=== PATIENT | female | born 1975 | race Caucasian/White ===

== ENCOUNTER 2018-08-31 18:20 | Emergency (ER) | payer MEDICAID ==
--- NOTE | 2018-08-31 19:39 | EDM.PDOC ---
ED HPI GENERAL MEDICAL PROBLEM - General Chief Complaint: Trauma Stated Complaint: FELL AT HOME/HEAD INJURY Time Seen by Provider: 08/31/18 19:20 Source of Information: Reports: Patient History Limitations: Reports: No Limitations - History of Present Illness INITIAL COMMENTS - FREE TEXT/NARRATIVE: 43-year-old female who was moving furniture and she was carrying a heavy piece of furniture up stairs by herself. She was ratcheting it up 2 steps at a time and when she was at the top, part of the furniture hit the step and she lost her balance and fell backwards falling down the entire flight of stairs. This occurred approximately 5 PM. She did have a loss of consciousness and awakened on the floor at the base of the steps. She does remember certain parts falling down the steps. She remembers hitting her posterior head and also hitting her nose. She denies any neck pain but does have some stiffness in her neck. She rates pain in her nose and her head as a 6/10. It is sharp and sore. It is worse with palpation. She had a slight nosebleed which has stopped. She feels that she is breathing normally through her nose. She has no abdominal pain. There is no arm or leg pain. She has no back pain. There are no other associated signs or symptoms. There are no other modifying factors. 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 - History Comment History Comment: Patient denies chronic medical problems. 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 Review of Systems - Review of Systems Review Of Systems: See Below Constitutional: Reports: No Symptoms Eyes: Reports: No Symptoms Ears: Reports: No Symptoms Nose: Reports: Epistaxis (Resolved), Other (Pain) Mouth/Throat: Reports: No Symptoms Respiratory: Reports: No Symptoms Cardiovascular: Reports: No Symptoms Genitourinary: Reports: No Symptoms Musculoskeletal: Reports: Neck Pain (Neck stiffness) Skin: Reports: No Symptoms (No open wounds) Neurological: Reports: Headache, Other (She had a loss of consciousness) Psychiatric: Reports: No Symptoms ED EXAM, GENERAL - Physical Exam Exam: See Below Exam Limited By: No Limitations General Appearance: Alert, WD/WN, Mild Distress Eye Exam: Bilateral Eye: EOMI, Normal Inspection, PERRL Ears: Normal External Exam, Hearing Grossly Normal Ear Exam: Bilateral Ear: Auricle Normal Nose: Nasal Tenderness, Nasal Swelling Throat/Mouth: Normal Inspection, Normal Lips, Normal Voice, No Airway Compromise Head: Other (As above; so her occipital scalp) Neck: Normal Inspection, Non-Tender, Other (Stiff). No: Tender Midline Respiratory/Chest: No Respiratory Distress, Lungs Clear, Normal Breath Sounds, No Accessory Muscle Use, Chest Non-Tender Cardiovascular: Normal Peripheral Pulses, Regular Rate, Rhythm, No Edema, No Gallop, No JVD, No Murmur, No Rub Peripheral Pulses: 2+: Radial (L), Radial (R) GI/Abdominal: Normal Bowel Sounds, Soft, Non-Tender, No Organomegaly, No Distention, Pelvis Stable Back Exam: Normal Inspection, Full Range of Motion Extremities: Normal Inspection, Normal Range of Motion, Non-Tender, No Pedal Edema, Normal Capillary Refill Neurological: Alert, Oriented, CN II-XII Intact, Normal Cognition, No Motor/ Sensory Deficits Psychiatric: Normal Affect, Normal Mood Skin Exam: Warm, Dry, Intact, Normal Color, No Rash Lymphatic: No Adenopathy Course - Vital Signs Last Recorded V/S: Last Vital Signs Temp 36.8 C 08/31/18 19:29 Pulse 67 08/31/18 20:07 Resp 18 08/31/18 20:07 BP 168/95 H 08/31/18 20:07 Pulse Ox 100 08/31/18 20:07 - Orders/Labs/Meds Orders: Active Orders 24 hr Category Date Time Status Cervical Spine wo Cont [CT] Stat Exams 08/31/18 19:31 Taken Head wo Cont [CT] Stat Exams 08/31/18 19:31 Taken Labs: Laboratory Tests 08/31/18 Range/Units 19:08 Urine Color Yellow (YELLOW) Urine Appearance Clear (CLEAR) Urine pH 7.0 H (5.0-6.5) Ur Specific [place] 1.005 L (1.010-1.025) Urine Protein Negative (NEGATIVE) mg/dL Urine Glucose (UA) Normal (NORMAL) mg/dL Urine Ketones Negative (NEGATIVE) mg/dL Urine Occult Blood Negative (NEGATIVE) Urine Nitrite Negative (NEGATIVE) Urine Bilirubin Negative (NEGATIVE) Urine Urobilinogen Normal (NEGATIVE) mg/dL Ur Leukocyte Esterase Negative (NEGATIVE) Urine RBC Not seen (0-5) Urine WBC 0-5 (0-5) Ur Squamous Epith Cells Rare (NS,R,O) Urine Bacteria Rare H (NS) - Re-Assessments/Exams Free Text/Narrative Re-Assessment/Exam: 08/31/18 21:04: The patient's blood pressure has remained elevated. The CT scan of her head and cervical spine showed no acute abnormality per the [facility] radiologist. Her urinalysis was clear. She is neurologically stable. She will need to follow-up with her primary doctor for repeat evaluation and for recheck of her elevated blood pressure. Departure - Departure Time of Disposition: 21:05 Disposition: Home, Self-Care 01 Clinical Impression: Hypertension, uncontrolled Fall down stairs Qualifiers: Encounter type: initial encounter Qualified Code(s): W10.8XXA - Fall (on) (from ) other stairs and steps, initial encounter Closed head injury with concussion Qualifiers: Encounter type: initial encounter Loss of consciousness presence/duration: with LOC of 30 min or less Qualified Code(s): S06.0X1A - Concussion with loss of consciousness of 30 minutes or less, initial encounter Nasal contusion Qualifiers: Encounter type: initial encounter Qualified Code(s): S00.33XA - Contusion of nose, initial encounter Fracture of nasal bone Qualifiers: Encounter type: initial encounter Fracture type: closed Qualified Code(s): S02.2XXA - Fracture of nasal bones, initial encounter for closed fracture - Discharge Information Instructions: Facial or Scalp Contusion, Concussion, Adult, [id number], Hypertension, [id number] Referrals: PCP,None [Primary Care Provider] - Forms: ED Department Discharge Additional Instructions: The CT scan of her head and neck showed no fractures. I do think that there is possibly a nondisplaced fracture of your nose but this would need no specific treatment unless you are having trouble breathing through her nose and then you should see an ear nose and throat doctor or your primary doctor. You do have a concussion. Your blood pressure was consistently elevated in the emergency department. Take Tylenol and ibuprofen as needed for pain. Apply ice packs to contused areas intermittently for the next few days. Follow-up with your primary doctor to have your blood pressure rechecked. Back to the emergency department for worsening headache, unrelenting vomiting, vision problems or any other concerning sign or symptom. - My Orders Last 24 Hours: My Active Orders 08/31/18 19:31 Cervical Spine wo Cont [CT] Stat Head wo Cont [CT] Stat - Assessment/Plan Last 24 Hours: My Active Orders 08/31/18 19:31 Cervical Spine wo Cont [CT] Stat Head wo Cont [CT] Stat
== END 2018-08-31 21:22 | disposition home or self-care (01) ==
LOC: FB.ED 18:20
DX: S06.0X1A Concussion with loss of consciousness of 30 minutes or less, initial encounter (principal); S02.2XXA Fracture of nasal bones, initial encounter for closed fracture; I10 Essential (primary) hypertension; F17.200 Nicotine dependence, unspecified, uncomplicated; Z91.09 Other allergy status, other than to drugs and biological substances; W10.8XXA Fall (on) (from) other stairs and steps, initial encounter
CPT/HCPCS: 70450; 72125; 81001; 99284-25

== ENCOUNTER 2018-09-25 11:05 | Emergency (ER) | payer MEDICAID ==
[2018-09-25] MEDS ORDERED: Sodium Chloride 0.9% 10 ML Syringe FLUSH PRN (11:36)
[2018-09-25] MEDS ORDERED: Aspirin 81 MG Tab.Chew PO ONE (11:38)
--- NOTE | 2018-09-25 11:44 | EDM.PDOC ---
ED HPI GENERAL MEDICAL PROBLEM - General Chief Complaint: Chest Pain Stated Complaint: CHEST PAIN Time Seen by Provider: 09/25/18 11:18 Source of Information: Reports: Patient History Limitations: Reports: No Limitations - History of Present Illness INITIAL COMMENTS - FREE TEXT/NARRATIVE: 43-year-old female who reports that 3 days ago she noticed a feeling of pressure or heaviness in her chest that she reports feels like someone sitting on my chest. She does not remember the incident in which it began and she reports that it has been continually present since that time with some waxing and waning. She reports that it feels better in the morning when she gets up but when she starts to move around the pain gets worse. The pain is worse with activity. There is really no change with palpation or with breathing. She does feel short of breath and that she feels out of when with activity and tired when she goes up stairs or walks for longer distances. No nausea or vomiting. No fevers or chills. She drove a cough yesterday that has been nonproductive. She's had no trauma. She has no leg swelling or leg pain. She rates the pain as a 3/10 now. It is a heavy feeling. No back, arm, neck or jaw pain. No radiation of the pain. There are no other associated signs or symptoms. There are no other modifying factors. 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) Middle Chest Pain Score (Numeric/FACES): 3 - Related Data Allergies Allergy/AdvReac Type Severity Reaction Status Date / Time seasonal Allergy Other Uncoded 12/22/17 02:43 Home Meds: Home Meds Lisinopril 10 mg PO DAILY 09/25/18 [History] Propranolol HCl 20 mg PO DAILY PRN 09/25/18 [History] Past Medical History HEENT History: Reports: Sinusitis, Other (See Below) Other HEENT History: Allergies and sinus problems Cardiovascular History: Reports: Hypertension Psychiatric History: Reports: Anxiety - Past Surgical History GI Surgical History: Reports: Appendectomy, Cholecystectomy Female Surgical History: Reports: Tubal Ligation, Other (See Below) (Ovarian cystectomy) Other Female Surgeries/Procedures: Hx ovarian cyst. Social & Family History - Family History Cardiac: Reports: CAD (Father first heart attack at age 28. 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.) ED ROS GENERAL - Review of Systems Review Of Systems: See Below Constitutional: Reports: Fatigue HEENT: Reports: No Symptoms Respiratory: Reports: Shortness of Breath (With activity) Cardiovascular: Reports: Chest Pain (As described above), Dyspnea on Exertion GI/Abdominal: Reports: No Symptoms Musculoskeletal: Reports: No Symptoms Skin: Reports: No Symptoms Neurological: Reports: No Symptoms Hematologic/Lymphatic: Reports: No Symptoms Immunologic: Reports: No Symptoms ED EXAM, GENERAL - Physical Exam Exam: See Below Exam Limited By: No Limitations General Appearance: Alert, WD/WN, No Apparent Distress Eye Exam: Bilateral Eye: EOMI, Normal Inspection, PERRL Ears: Normal External Exam, Hearing Grossly Normal Nose: Normal Inspection, Normal Mucosa, No Blood Throat/Mouth: Normal Inspection, Normal Lips, Normal Oropharynx, Normal Voice, No Airway Compromise Head: Atraumatic, Normocephalic Neck: Normal Inspection, Supple, Non-Tender, Full Range of Motion Respiratory/Chest: No Respiratory Distress, Lungs Clear, Normal Breath Sounds, No Accessory Muscle Use Cardiovascular: Normal Peripheral Pulses, Regular Rate, Rhythm, No Edema, No JVD Peripheral Pulses: 2+: Radial (L), Radial (R), Dorsalis Pedis (L), Dorsalis Pedis (R) GI/Abdominal: Normal Bowel Sounds, Soft, Non-Tender, No Organomegaly, No Distention, No Mass Extremities: Normal Inspection, Normal Range of Motion, Non-Tender, No Pedal Edema, Normal Capillary Refill Neurological: Alert, Oriented, CN II-XII Intact, Normal Cognition, No Motor/ Sensory Deficits Skin Exam: Warm, Dry, Intact, Normal Color, No Rash Lymphatic: No Adenopathy EKG INTERPRETATION EKG Date: 09/25/18 Time: 11:08 Rhythm: NSR Rate (Beats/Min): 69 [place]: Normal P-Wave: Present QRS: Normal ST-T: Normal QT: Normal Comparison: NA - No Prior EKG EKG Interpretation Comments: Normal sinus rhythm with a rate of 69. There is a normal axis. There are normal intervals. This is a normal EKG. Course - Vital Signs Last Recorded V/S: Last Vital Signs Temp 36.5 C 09/25/18 11:05 Pulse 78 09/25/18 11:05 Resp 16 09/25/18 11:05 BP 156/82 H 09/25/18 11:05 Pulse Ox 98 09/25/18 11:05 - Orders/Labs/Meds Orders: Active Orders 24 hr Category Date Time Status EKG Documentation Completion [RC] ASDIRECTED Care 09/25/18 11:38 Active CXR [Chest 2V] [CR] Stat Exams 09/25/18 11:36 Taken Sodium Chloride 0.9% [Saline Flush] Med 09/25/18 11:36 Active 10 ml FLUSH ASDIRECTED PRN Peripheral IV Insertion Adult [OM.PC] Routine Oth 09/25/18 11:36 Ordered EKG 12 Lead [EK] Routine Ther 09/25/18 11:37 Ordered Medication Orders Sodium Chloride (Saline Flush) 10 ml FLUSH ASDIRECTED PRN PRN Reason: Keep Vein Open Last Admin: 09/25/18 11:55 Dose: 10 ml Labs: Laboratory Tests 09/25/18 09/25/18 09/25/18 Range/Units 11:47 11:47 11:47 WBC 6.8 (4.5-12.0) X10-3/uL RBC 4.32 (3.23-5.20) x10(6)uL Hgb 14.1 (11.5-15.5) g/dL Hct 41.9 (30.0-51.3) % MCV 97.0 H (80-96) fL MCH 32.8 (27.7-33.6) pg MCHC 33.8 (32.2-35.4) g/dL RDW 12.8 (11.5-15.5) % Plt Count 154 (125-369) X10(3)uL MPV 10.0 (7.4-10.4) fL Neut % (Auto) 66.9 (46-82) % Lymph % (Auto) 25.4 (13-37) % [place] % (Auto) 4.9 (4-12) % Eos % (Auto) 2 (1.0-5.0) % Baso % (Auto) 1 (0-2) % Neut # (Auto) 4.6 (1.6-8.3) # Lymph # (Auto) 1.7 (0.6-5.0) # [place] # (Auto) 0.3 (0.0-1.3) # Eos # (Auto) 0.1 (0.0-0.8) # Baso # (Auto) 0.1 (0.0-0.2) # D-Dimer, Quantitative 0.43 (0.0-0.59) mg/LFEU Sodium 139 (135-145) mmol/L Potassium 4.1 (3.5-5.3) mmol/L Chloride 104 (100-110) mmol/L Carbon Dioxide 28 (21-32) mmol/L BUN 12 (7-18) mg/dL Creatinine 0.9 (0.55-1.02) mg/dL Est Cr Clr Drug Dosing 71.03 mL/min Estimated GFR (MDRD) > 60 (>60) BUN/Creatinine Ratio 13.3 (9-20) Glucose 100 (80-116) mg/dL Calcium 8.7 (8.6-10.2) mg/dL Magnesium 1.8 (1.8-2.5) mg/dL Total Bilirubin 0.5 (0.1-1.3) mg/dL AST 14 (5-25) IU/L ALT 20 (12-36) U/L Alkaline Phosphatase 76 (56-112) IU/L Troponin I (<0.017-0.056) ng/mL Total Protein 6.6 (6.0-8.0) g/dL Albumin 3.5 (3.5-5.2) g/dL Globulin 3.1 g/dL Albumin/Globulin Ratio 1.1 09/25/18 Range/Units 11:47 WBC (4.5-12.0) X10-3/uL RBC (3.23-5.20) x10(6)uL Hgb (11.5-15.5) g/dL Hct (30.0-51.3) % MCV (80-96) fL MCH (27.7-33.6) pg MCHC (32.2-35.4) g/dL RDW (11.5-15.5) % Plt Count (125-369) X10(3)uL MPV (7.4-10.4) fL Neut % (Auto) (46-82) % Lymph % (Auto) (13-37) % [place] % (Auto) (4-12) % Eos % (Auto) (1.0-5.0) % Baso % (Auto) (0-2) % Neut # (Auto) (1.6-8.3) # Lymph # (Auto) (0.6-5.0) # [place] # (Auto) (0.0-1.3) # Eos # (Auto) (0.0-0.8) # Baso # (Auto) (0.0-0.2) # D-Dimer, Quantitative (0.0-0.59) mg/LFEU Sodium (135-145) mmol/L Potassium (3.5-5.3) mmol/L Chloride (100-110) mmol/L Carbon Dioxide (21-32) mmol/L BUN (7-18) mg/dL Creatinine (0.55-1.02) mg/dL Est Cr Clr Drug Dosing mL/min Estimated GFR (MDRD) (>60) BUN/Creatinine Ratio (9-20) Glucose (80-116) mg/dL Calcium (8.6-10.2) mg/dL Magnesium (1.8-2.5) mg/dL Total Bilirubin (0.1-1.3) mg/dL AST (5-25) IU/L ALT (12-36) U/L Alkaline Phosphatase (56-112) IU/L Troponin I < 0.017 L (<0.017-0.056) ng/mL Total Protein (6.0-8.0) g/dL Albumin (3.5-5.2) g/dL Globulin g/dL Albumin/Globulin Ratio Meds: Medications Generic Name Dose Route Start Last Admin Trade Name Freq PRN Reason Stop Dose Admin Sodium Chloride 10 ml 09/25/18 11:36 09/25/18 11:55 Saline Flush FLUSH 10 ml ASDIRECTED PRN Administration Keep Vein Open Discontinued Medications Generic Name Dose Route Start Last Admin Trade Name Dulce Maria PRN Reason Stop Dose Admin Aspirin 324 mg 09/25/18 11:38 09/25/18 11:40 Aspirin PO 09/25/18 11:39 324 mg ONETIME ONE Administration - Radiology Interpretation Free Text/Narrative:: Chest x-ray, PA and lateral, showed no acute disease. - Re-Assessments/Exams Free Text/Narrative Re-Assessment/Exam: 09/25/18 12:39: The patient was given aspirin initially (324 mg) and following this she reports that it did seem to make her symptoms better. Her blood tests including a troponin and a d-dimer were normal. With her chest pain ongoing and continual for the past 3 days, I feel that a negative troponin rules out an MA. She has remained vitally stable in the emergency department with an improved blood pressure over her last visit. With her strong family history of heart disease, however, I have recommended that she follow-up with her primary doctor to have further testing (she will need outpatient cardiac risk stratification testing). I have recommended that she avoid any strenuous activity until she can follow-up with her primary doctor and get this testing performed. Departure - Departure Time of Disposition: 12:45 Disposition: Home, Self-Care 01 Condition: Good Clinical Impression: Chest pain of unknown etiology, Ruled out for myocardial infarction Forms: ED Department Discharge Additional Instructions: Your blood tests were reassuringly normal. Your heart enzyme test was normal and as we discussed with you having ongoing pain for the past 3 days, this rules out a heart attack. Your blood clots screening test was normal as well. Your chest x-ray was normal. Your blood pressure was also somewhat improved from his visit. I would recommend that you take your blood pressure medication every day. However, with your strong family history of heart disease, I recommend that you follow-up with your primary doctor as she will need additional testing to take sure that you do not have heart disease. You should avoid any strenuous activity until you can follow-up with her primary doctor and get this testing done. For now, I would recommend taking 1 baby aspirin every day. Back to the emergency department for worsening chest pain, coughing of blood, worse breathing or any other concerning sign or symptom. - My Orders Last 24 Hours: My Active Orders 09/25/18 11:36 CXR [Chest 2V] [CR] Stat Sodium Chloride 0.9% [Saline Flush] 10 ml FLUSH ASDIRECTED PRN Peripheral IV Insertion Adult [OM.PC] Routine 09/25/18 11:37 EKG 12 Lead [EK] Routine 09/25/18 11:38 EKG Documentation Completion [RC] ASDIRECTED - Assessment/Plan Last 24 Hours: My Active Orders 09/25/18 11:36 CXR [Chest 2V] [CR] Stat Sodium Chloride 0.9% [Saline Flush] 10 ml FLUSH ASDIRECTED PRN Peripheral IV Insertion Adult [OM.PC] Routine 09/25/18 11:37 EKG 12 Lead [EK] Routine 09/25/18 11:38 EKG Documentation Completion [RC] ASDIRECTED
--- NOTE | 2018-09-25 13:45 | CR ---
INDICATION: Chest pressure for three days. CHEST: PA and lateral views of the chest, 09/25/18 - no comparisons. Overlying EKG leads are noted. Minimal calcification is noted in the arch of the aorta. Heart is normal in size and shape. Bony structures are unremarkable. An active infiltrate or effusion was not identified. Prominent AP diameter, mild hyperaeration, and slightly flattened diaphragm leaves raise question of obstructive airway disease - correlate clinically. IMPRESSION: 1. No definite acute process. 2. Minimal ASD aorta with normal heart size and shape. 3. Question possibility of obstructive airway disease - correlate clinically. MTDD
== END 2018-09-25 12:52 | disposition home or self-care (01) ==
LOC: FB.ED 11:05
DX: R07.9 Chest pain, unspecified (principal); I10 Essential (primary) hypertension; F17.210 Nicotine dependence, cigarettes, uncomplicated; Z91.048 Other nonmedicinal substance allergy status
CPT/HCPCS: 36415; 71046; 80053; 83735; 84484; 85025; 85379; 93005; 99285; A9270

== ENCOUNTER 2021-10-21 20:53 | Emergency (ER) | payer MEDICAID ==
[2021-10-21] MEDS ORDERED: Ondansetron 4 MG Tab.DIS PO ONE (21:15)
== END 2021-10-21 22:50 | disposition home or self-care (01) ==
LOC: FB.ED 20:53
DX: S00.83XA Contusion of other part of head, initial encounter (principal); Z91.048 Other nonmedicinal substance allergy status; Z79.899 Other long term (current) drug therapy; W18.09XA Striking against other object with subsequent fall, initial encounter
CPT/HCPCS: 70450; 70486; 73110; 99284; Q0162; 99282